=== PATIENT | female | born 2000 | race Caucasian/White ===

== ENCOUNTER 2023-03-09 22:05 | Emergency (ER) | payer OTHER ==
[2023-03-09 22:13] VITALS: BP 144/81; PULSE 98; RESP 18; TEMP 98.4; BMI 28.3
[2023-03-09] MEDS ORDERED: ONDANSETRON 4 MG/2 ML VIAL IVPUSH ONE (23:13)
[2023-03-09] MEDS ORDERED: SODIUM CHLORIDE 0.9% 500 ML INFUS.BAG IV ONE (23:13)
[2023-03-09 23:20] LABS: EPI CELLS 33 /uL (0-25.1); HYALINE CASTS 1 /uL (0-3.1); URINE APPEARANCE CLOUDY; URINE BILIRUBIN 1+ (NEGATIVE); URINE COLOR ORANGE; URINE GLUCOSE (UA) NEGATIVE (NEGATIVE); URINE KETONE NEGATIVE (NEGATIVE); URINE LEUK ESTERASE 1+ (NEGATIVE); URINE NITRITE POSITIVE (NEGATIVE); URINE PROTEIN 2+ (NEGATIVE); URINE RBC 15235 /uL (0-23.9); URINE WBC 86 /uL (0-25.8)
[2023-03-10] MEDS ORDERED: ONDANSETRON 4 MG/2 ML VIAL ONE (00:01)
[2023-03-10 00:31] LABS: BASO % 0.2 % (0-2.0); EOS % 0.5 % (0-4.5); HEMATOCRIT 40.9 % (32.4-45.2); HEMOGLOBIN 13.5 GM/dL (10.7-15.3); LYMPH % 15.6 % (8-40); MCH 28.9 pg (25.7-33.7); MCHC 32.9 g/dl (32.0-36.0); MEAN CELL VOLUME 88.1 fl (80-96); MEAN PLT VOLUME 8.4 fl (7.5-11.1); MONO % 4.6 % (3.8-10.2); NEUT % 79.1 % (42.8-82.8); PLATELET COUNT 294 10^3/uL (134-434); RBC 4.65 M/mm3 (3.60-5.2); RDW 12.7 % (11.6-15.6); WHITE BLOOD COUNT 11.5 K/mm3 (4.0-10.0)
[2023-03-10 00:46] LABS: INR 1.09 (0.83-1.09); PROTHROMBIN TIME (PATIENT) 12.6 SEC (9.7-13.0)
[2023-03-10 00:47] LABS: POTASSIUM 3.7 mmol/L (3.5-5.1)
[2023-03-10 00:48] LABS: ACTIVATED PTT 30.3 SECONDS (25.2-36.5)
[2023-03-10 00:49] LABS: CALCIUM 9.6 mg/dL (8.5-10.1)
[2023-03-10 00:50] LABS: ALBUMIN 4.4 g/dl (3.4-5.0); BLOOD UREA NITROGEN 11.5 mg/dL (7-18)
[2023-03-10 00:54] LABS: CREATININE 0.9 mg/dL (0.55-1.3)
[2023-03-10 00:55] LABS: BILIRUBIN,TOTAL 0.4 mg/dL (0.2-1); TOT PROT 7.8 g/dl (6.4-8.2)
== END 2023-03-10 02:25 | disposition home or self-care (01) ==
LOC: JER 22:05
PROC: 3E033GC Introduction of Other Therapeutic Substance into Peripheral Vein, Percutaneous Approach (ICD-10-PCS; principal; 2023-03-10)
DX: O26.891 Other specified pregnancy related conditions, first trimester (principal); R10.31 Right lower quadrant pain; O20.9 Hemorrhage in early pregnancy, unspecified; R11.0 Nausea; Z3A.00 Weeks of gestation of pregnancy not specified
CPT/HCPCS: 36415; 76830-TC; 80053; 81003; 83735; 84702; 84703; 85025; 85610; 85730; 86850; 86900; 86901; 87086; 87491; 87591; 99284-25

== ENCOUNTER 2023-03-11 17:24 | Emergency (ER) | payer OTHER ==
[2023-03-11 17:39] VITALS: BP 112/71; PULSE 114; RESP 20; TEMP 98.6; BMI 23.6
[2023-03-11 19:17] LABS: BASO % 0.3 % (0-2.0); EOS % 1.1 % (0-4.5); HEMATOCRIT 40.7 % (32.4-45.2); HEMOGLOBIN 13.6 GM/dL (10.7-15.3); LYMPH % 25.2 % (8-40); MCH 29.2 pg (25.7-33.7); MCHC 33.5 g/dl (32.0-36.0); MEAN CELL VOLUME 87.1 fl (80-96); MEAN PLT VOLUME 8.4 fl (7.5-11.1); MONO % 6.6 % (3.8-10.2); NEUT % 66.8 % (42.8-82.8); PLATELET COUNT 291 10^3/uL (134-434); RBC 4.67 M/mm3 (3.60-5.2); RDW 12.6 % (11.6-15.6); WHITE BLOOD COUNT 8.4 K/mm3 (4.0-10.0)
[2023-03-11 19:25] LABS: INR 1.1 (0.83-1.09); PROTHROMBIN TIME (PATIENT) 12.8 SEC (9.7-13.0)
[2023-03-11 19:28] LABS: ACTIVATED PTT 29.1 SECONDS (25.2-36.5)
[2023-03-11 19:43] LABS: CALCIUM 9.3 mg/dL (8.5-10.1)
[2023-03-11 19:44] LABS: ALBUMIN 4.3 g/dl (3.4-5.0); BLOOD UREA NITROGEN 10.7 mg/dL (7-18)
[2023-03-11 19:47] LABS: CREATININE 0.7 mg/dL (0.55-1.3)
[2023-03-11 19:48] LABS: BILIRUBIN,TOTAL 0.5 mg/dL (0.2-1)
== END 2023-03-11 21:18 | disposition home or self-care (01) ==
LOC: JER 17:24
DX: O03.9 Complete or unspecified spontaneous abortion without complication (principal); R10.31 Right lower quadrant pain
CPT/HCPCS: 36415; 76830-TC; 80053; 84702; 85025; 85610; 85730; 99284-25

== ENCOUNTER 2023-11-05 15:08 | Emergency (ER) | payer OTHER ==
[2023-11-05 15:19] VITALS: BP 111/75; PULSE 98; RESP 18; TEMP 98; BMI 24.3
[2023-11-05 17:10] LABS: BASO % 0.2 % (0-2.0); HEMATOCRIT 40.4 % (32.4-45.2); HEMOGLOBIN 13.3 GM/dL (10.7-15.3); LYMPH % 19.2 % (8-40); MCH 28.5 pg (25.7-33.7); MCHC 32.9 g/dl (32.0-36.0); MEAN CELL VOLUME 86.7 fl (80-96); MEAN PLT VOLUME 7.7 fl (7.5-11.1); NEUT % 71.6 % (42.8-82.8); PLATELET COUNT 300 10^3/uL (134-434); RBC 4.67 M/mm3 (3.60-5.2); RDW 14.1 % (11.6-15.6); WHITE BLOOD COUNT 5.4 K/mm3 (4.0-10.0)
[2023-11-05 17:12] LABS: EPI CELLS 27 /uL (0-25.1); HYALINE CASTS 1 /uL (0-3.1); PH,URINE 6.5 (5.0-8.0); URINE APPEARANCE CLEAR; URINE BACTERIA 90 /uL (0-1359); URINE BILIRUBIN NEGATIVE (NEGATIVE); URINE COLOR YELLOW; URINE GLUCOSE (UA) NEGATIVE (NEGATIVE); URINE KETONE NEGATIVE (NEGATIVE); URINE LEUK ESTERASE 2+ (NEGATIVE); URINE NITRITE NEGATIVE (NEGATIVE); URINE PROTEIN NEGATIVE (NEGATIVE); URINE RBC 13 /uL (0-23.9); URINE UROBILINOGEN 0.2 mg/dL (0.2-1.0); URINE WBC 317 /uL (0-25.8)
[2023-11-05 17:28] LABS: POTASSIUM 4.1 mmol/L (3.5-5.1)
[2023-11-05 17:30] LABS: BLOOD UREA NITROGEN 9.9 mg/dL (7-18); CALCIUM 9.2 mg/dL (8.5-10.1); MAGNESIUM 2.2 mg/dL (1.8-2.4)
[2023-11-05 17:34] LABS: CREATININE 0.7 mg/dL (0.55-1.3)
[2023-11-05 17:35] LABS: BILIRUBIN,TOTAL 0.4 mg/dL (0.2-1); TOT PROT 7.4 g/dl (6.4-8.2)
[2023-11-05] MEDS: LACTATED RINGERS SOLUTION 1000 ML INFUS.BAG IV ONE (17:44)
[2023-11-05] MEDS: CIPROFLOXACIN 500 MG TABLET (RESTRICTED TO ID) PO ONE (20:53)
== END 2023-11-05 20:59 | disposition home or self-care (01) ==
LOC: JER 15:08
DX: N39.0 Urinary tract infection, site not specified (principal); R19.7 Diarrhea, unspecified; R35.0 Frequency of micturition; R39.15 Urgency of urination
CPT/HCPCS: 36415; 80053; 81003; 83735; 84703; 85025; 87045; 87046; 87086; 87186; 87328; 87329; 99283-25